=== PATIENT | female | born 1965 | race Caucasian/White ===

== ENCOUNTER 2018-09-16 19:45 | Emergency (ER) | payer MEDICARE, OTHER ==
[~2018-09-16] VITALS: Ht 160 cm; Wt 111.4 kg
[~2018-09-16 19:45] MED LIST: BACL10TA PO; BUPR-94 PO; LEVO25TA2 PO; OMEP20CA10 PO; TOPI100T18 PO
[2018-09-16] MEDS ORDERED: acetaminophen 325mg tablet PO STA (20:04)
[2018-09-16] MEDS ORDERED: normal saline 1000ML IV soln IV ONE (20:25)
[2018-09-16] MEDS ORDERED: acetaminophen 325mg tablet PO ONE (20:25)
[2018-09-16 20:30] LABS: BASOPHILS % (AUTO) 0.3 % (0-1); EOSINOPHILS # (AUTO) 0.3 X10'3 (0-0.9); EOSINOPHILS % (AUTO) 2.8 % (0-6); HEMATOCRIT 35.9 % (35.0-45.0); HEMOGLOBIN 11.4 g/dl (12.0-16.0); LYMPHOCYTES # (AUTO) 0.8 X10'3 (1.1-4.8); LYMPHOCYTES % (AUTO) 7.2 % (21-51); MEAN CORPUSCULAR HEMOGLOBIN 24.3 PG (27.0-31.0); MEAN CORPUSCULAR HGB CONC 31.8 % (33.0-36.5); MEAN CORPUSCULAR VOLUME 76.2 FL (78-98); MEAN PLATELET VOLUME 8.1 FL (7.4-10.4); MONOCYTES # (AUTO) 0.3 X10'3 (0-0.9); MONOCYTES % (AUTO) 2.9 % (2-12); NEUTROPHILS % (AUTO) 86.8 % (42-75); PLATELET COUNT 319 X10'3 (140-440); RED BLOOD COUNT 4.71 X10'6 (4.20-5.60); RED CELL DISTRIBUTION WIDTH 17.4 % (11.5-14.5); WHITE BLOOD COUNT 10.4 X10'3 (4.5-11.0)
[2018-09-16] MEDS ORDERED: ondansetron/PF 4mg/2ml inj IV ONE (20:30)
[2018-09-16 20:45] LABS: ALANINE AMINOTRANSFERASE 23 U/L (12-78); ALBUMIN 3.3 G/DL (3.4-5.0); ALBUMIN/GLOBULIN RATIO 0.8 (1.1-1.5); ALKALINE PHOSPHATASE 80 IU/L (46-116); ANION GAP 14 (8-16); ASPARTATE AMINO TRANSFERASE 16 U/L (10-37); BILIRUBIN,TOTAL 0.3 MG/DL (0.1-1.0); BLOOD UREA NITROGEN 15 MG/DL (7-18); BUN/CREATININE RATIO 17.9 (6.6-38.0); CALCIUM 8.5 MG/DL (8.5-10.1); CHLORIDE 105 MMOL/L (99-107); CREATININE 0.84 MG/DL (0.40-0.90); GLUCOSE 120 MG/DL (70-104); POTASSIUM 4.1 MMOL/L (3.5-5.1); SODIUM 141 MMOL/L (135-145); TOTAL CARBON DIOXIDE 22.5 MMOL/L (24-32); TOTAL PROTEIN 7.4 G/DL (6.4-8.2); eGFR 71 ML/MIN
[2018-09-16 20:48] LABS: INR 0.9 INR; PARTIAL THROMBOPLASTIN TIME 26 SECONDS (22-32); PROTHROMBIN TIME 9.4 SECONDS (9.0-12.0)
[2018-09-16 21:00] LABS: CLARITY,URINE SLIGHTLY CLOUDY (Clear); COLOR,URINE YELLOW (Yellow); GLUCOSE, URINE NEGATIVE (Neg); KETONES,URINE NEGATIVE (Neg); LEUKOCYTE ESTERASE ,URINE MODERATE (Neg); NITRITES, URINE NEGATIVE (Neg); OCCULT BLOOD,URINE SMALL (Neg); PROTEIN,URINE NEGATIVE (Neg); UROBILINOGEN,URINE 0.2 E.U/dL (0.2-1.0)
[2018-09-16 21:02] LABS: UA COLLECTION TYPE CLN CATCH MIDSTREAM
[2018-09-16 21:14] LABS: WBC,URINE TNTC /HPF (0-4)
[2018-09-16 21:15] LABS: BACTERIA,URINE 4+ /HPF (Neg); SQUAMOUS EPITHELIAL CELL,UR MODERATE /LPF (FEW)
[2018-09-16] MEDS ORDERED: CefTRIAXone 2gm/D5W 50ml 50 ML IV ONE (21:15)
[2018-09-16] MEDS ORDERED: proCHLORperazine 10 MG/2 ml inj IV ONE (21:45)
[2018-09-16] MEDS ORDERED: fentaNYL/PF 50MCG/1 ML 2ML syringe IV ONE (21:45)
[2018-09-16] MEDS ORDERED: BUPR300T54 (21:50)
[2018-09-16] MEDS ORDERED: BACL10TA PO (21:52)
[2018-09-16 23:05] VITALS: BP 156/73
[2018-09-16] MEDS ORDERED: DOXYCYCLINE 100MG CAPSULE PO ONE (23:25)
[2018-09-16] MEDS ORDERED: DOXY100C43 PO (23:26)
== END 2018-09-16 23:56 | disposition home or self-care (01) ==
LOC: ER 19:45
DX: N39.0 Urinary tract infection, site not specified (principal); D35.02 Benign neoplasm of left adrenal gland; G43.909 Migraine, unspecified, not intractable, without status migrainosus; M19.90 Unspecified osteoarthritis, unspecified site; Z90.49 Acquired absence of other specified parts of digestive tract; Z98.890 Other specified postprocedural states; Z88.5 Allergy status to narcotic agent; Z88.6 Allergy status to analgesic agent; Z88.8 Allergy status to other drugs, medicaments and biological substances; Z79.899 Other long term (current) drug therapy
CPT/HCPCS: 36415; 71045; 74176; 80053; 81001; 83605; 84145; 85025; 85610; 85730; 87040; 87077; 87088; 87186; 93005; 96365; 96375; 99284; J0696; J0780; J2405; J3010; J7030

== ENCOUNTER 2020-02-06 14:21 | Emergency (ER) | payer MEDICARE ==
[~2020-02-06] VITALS: Ht 162.6 cm; Wt 109.1 kg
[~2020-02-06 14:21] MED LIST changes: +BUPR-344; -BUPR-94 PO; -OMEP20CA10 PO; +OMEP20CA15 PO; +TOP100T PO; -TOPI100T18 PO
[2020-02-06] MEDS ORDERED: pantoprazole 40 MG vial IV ONE (15:10)
[2020-02-06] MEDS ORDERED: LORazepam 2 mg/ml vial IV ONE (15:10)
[2020-02-06] MEDS ORDERED: ondansetron/PF 4mg/2ml inj IV ONE (15:10)
[2020-02-06] MEDS ORDERED: normal saline 1000ML IV soln IVB ONE (15:10)
[2020-02-06 15:41] LABS: BASOPHILS # (AUTO) 0.1 X10'3 (0-0.2); BASOPHILS % (AUTO) 0.6 % (0-1); EOSINOPHILS # (AUTO) 0.2 X10'3 (0-0.9); EOSINOPHILS % (AUTO) 1.6 % (0-6); HEMOGLOBIN 13.4 g/dl (12.0-16.0); LYMPHOCYTES # (AUTO) 1.4 X10'3 (1.1-4.8); LYMPHOCYTES % (AUTO) 15.3 % (21-51); MEAN CORPUSCULAR HEMOGLOBIN 27.1 PG (27.0-31.0); MEAN CORPUSCULAR HGB CONC 32.7 g/dL (33.0-36.5); MEAN PLATELET VOLUME 7.5 FL (7.4-10.4); MONOCYTES # (AUTO) 0.5 X10'3 (0-0.9); NEUTROPHILS # (AUTO) 7.3 X10'3 (1.8-7.7); NEUTROPHILS % (AUTO) 77.5 % (42-75); PLATELET COUNT 306 X10'3 (140-440); RED BLOOD COUNT 4.94 X10'6 (4.20-5.60); RED CELL DISTRIBUTION WIDTH 18.8 % (11.5-14.5); WHITE BLOOD COUNT 9.4 X10'3 (4.5-11.0)
[2020-02-06 15:50] LABS: ALANINE AMINOTRANSFERASE 36 U/L (12-78); ALBUMIN 3.4 G/DL (3.4-5.0); ALBUMIN/GLOBULIN RATIO 0.9 (1.1-1.5); ALKALINE PHOSPHATASE 80 IU/L (46-116); ANION GAP 11 (8-16); ASPARTATE AMINO TRANSFERASE 52 U/L (10-37); BILIRUBIN,TOTAL 0.4 MG/DL (0.1-1.0); BLOOD UREA NITROGEN 11 MG/DL (7-18); BUN/CREATININE RATIO 15.1 (6.6-38.0); CALCIUM 9.1 MG/DL (8.5-10.1); CHLORIDE 106 MMOL/L (99-107); CREATININE 0.73 MG/DL (0.40-0.90); ETHANOL 0.026 GM/DL (0.0-0.010); GLUCOSE 105 MG/DL (70-104); SODIUM 142 MMOL/L (135-145); TOTAL CARBON DIOXIDE 24.9 MMOL/L (24-32); eGFR 83 ML/MIN
[2020-02-06 16:02] LABS: CLARITY,URINE CLEAR (Clear); COLOR,URINE YELLOW (Yellow); GLUCOSE, URINE NEGATIVE (Neg); KETONES,URINE 15 mg/dl (Neg); LEUKOCYTE ESTERASE ,URINE NEGATIVE (Neg); NITRITES, URINE NEGATIVE (Neg); OCCULT BLOOD,URINE NEGATIVE (Neg); PH,URINE 5.5 (4.8-8.0); PROTEIN,URINE NEGATIVE (Neg); UROBILINOGEN,URINE 0.2 E.U/dL (0.2-1.0)
[2020-02-06 16:04] LABS: UA COLLECTION TYPE CLN CATCH MIDSTREAM
[2020-02-06 16:10] LABS: PLATELET ESTIMATE NORMAL; POLYCHROMASIA 1+; STOMATOCYTES 1+
[2020-02-06] MEDS ORDERED: CHLO25CA10 PO ×2 (16:23→17:01)
[2020-02-06] MEDS ORDERED: ONDA8TAB13 PO (16:24)
[2020-02-06 17:11] VITALS: BP 163/86
--- NOTE | 2020-02-06 17:12 | NUR ---
PT WILL BE PICKED UP BY HER AND GO HOME TO DETOX.
== END 2020-02-06 17:14 | disposition home or self-care (01) ==
LOC: ER 14:21
DX: F10.239 Alcohol dependence with withdrawal, unspecified (principal); Y90.0 Blood alcohol level of less than 20 mg/100 ml; M19.90 Unspecified osteoarthritis, unspecified site; F32.9 Major depressive disorder, single episode, unspecified; Z90.49 Acquired absence of other specified parts of digestive tract; Z98.0 Intestinal bypass and anastomosis status; Z79.899 Other long term (current) drug therapy; Z88.5 Allergy status to narcotic agent; Z91.048 Other nonmedicinal substance allergy status; Z88.8 Allergy status to other drugs, medicaments and biological substances
CPT/HCPCS: 36415; 80053; 80320; 81003; 83605; 85025; 85610; 93005; 96374; 96375; 99284; C9113; J2060; J2405; J7030

== ENCOUNTER 2024-11-09 08:58 | Emergency (ER) | payer BC, MEDICARE ==
[~2024-11-09] VITALS: Ht 160 cm; Wt 105.9 kg
[~2024-11-09 08:58] MED LIST changes: +CHLO25CA10 PO; +ONDA-245 PO
[2024-11-09 09:06] VITALS: BP 187/114; PULSE 96; RESP 18; TEMP 98.1; O2SAT 96
[2024-11-09] MEDS: ondansetron 4mg rapidly disintigrating tab PO ONE (09:18)
== END 2024-11-09 11:23 | disposition left against medical advice (07) ==
LOC: ER 08:59
DX: R10.84 Generalized abdominal pain (principal); R11.10 Vomiting, unspecified; E11.9 Type 2 diabetes mellitus without complications; Z53.21 Procedure and treatment not carried out due to patient leaving prior to being seen by health care provider; Z88.8 Allergy status to other drugs, medicaments and biological substances
CPT/HCPCS: 82948